=== PATIENT | female | born 1975 | race African-American/Black ===

== ENCOUNTER 2018-06-24 15:21 | Emergency (ER) | payer MEDICAID ==
[~2018-06-24] VITALS: Ht 175.3 cm; Wt 137.0 kg
[2018-06-24 21:00] VITALS: BP 131/71
== END 2018-06-24 21:25 | disposition home or self-care (01) ==
LOC: ER 15:21
DX: B34.9 Viral infection, unspecified (principal); Z85.43 Personal history of malignant neoplasm of ovary; Z90.721 Acquired absence of ovaries, unilateral; Z98.890 Other specified postprocedural states; Z88.7 Allergy status to serum and vaccine
CPT/HCPCS: 71045; 81025; 93005; 99283

== ENCOUNTER 2020-04-28 21:45 | Emergency (ER) | payer MEDICAID ==
[~2020-04-28] VITALS: Ht 175.3 cm; Wt 135.0 kg
[2020-04-28 21:52] VITALS: BP 156/80
[2020-04-28] MEDS ORDERED: IBUPROFEN 600MG TABLET PO ONE (22:15)
== END 2020-04-29 00:14 | disposition home or self-care (01) ==
LOC: ER 21:45
DX: S89.91XA Unspecified injury of right lower leg, initial encounter (principal); Z88.7 Allergy status to serum and vaccine; X58.XXXA Exposure to other specified factors, initial encounter; Y93.89 Activity, other specified; Y92.89 Other specified places as the place of occurrence of the external cause; Y99.8 Other external cause status
CPT/HCPCS: 73562; 93971; 99284